=== PATIENT | male | born 1940 | race Caucasian/White ===

== ENCOUNTER 2017-06-07 08:51 | Observation (INO) | payer MEDICARE ==
[~2017-06-07] VITALS: Ht 177.8 cm; Wt 83.2 kg
--- OUTSIDE RECORDS SUMMARY | ~2017-06-07 | XMS | Clinical Summary ---
Demographics + + + | Address | [id number] [place] [address] | | | [place] [address] | + + + | Home Phone | | + + + | Preferred Language | Unknown | + + + | Marital Status | | + + + | Sabianism Affiliation | NON | + + + | Race | White | + + + | Ethnic Group | Not or | + + + Author + + + | Author | [facility] | + + + | Organization | [facility] | + + + | Address | Unknown | + + + | Phone | Unavailable | + + + Support +------+ +---------+ + | Name | Relationship | Address | Phone | +------+ +---------+ + ECON | Unknown | | +------+ +---------+ + Care Team Providers + +------+ + | Care Level Vial Marker Name | Role | Phone | + +------+ + PP | Unavailable | + +------+ + Source Comments MARGARITO is fully live on both [facility] and [facility] InPatient.[facility] Allergies No Known Allergies Current Medications + + +-------+---------+------+------+-------+ | Prescription | Sig. | Disp. | Refills | Star | End | Statu | | | | | | t | Date | s | | | | | | Date | | | + + +-------+---------+------+------+-------+ | SPIRIVA WITH | None Entered | | | | | Activ | | HANDIHALER 18 MCG & | | | | | | e | | INHALATION CAPS | | | | | | | + + +-------+---------+------+------+-------+ | BENICAR HCT 40 | None Entered | | | | | Activ | | MG-25 MG TAB | | | | | | e | + + +-------+---------+------+------+-------+ | ALBUTEROL IN | None Entered | | | | | Activ | | | | | | | | e | + + +-------+---------+------+------+-------+ | CELEBREX 200 MG | None Entered | | | | | Activ | | CAP | | | | | | e | + + +-------+---------+------+------+-------+ | NEXIUM 40 MG CAP | One capsule by mouth | 180 | 3 | 01/0 | | Activ | | | twice daily | | | 9/20 | | e | | | | | | 06 | | | + + +-------+---------+------+------+-------+ | FLONASE 50 | inhale 1 spray in | 1 | 11 | 01/1 | | Activ | | MCG/ACTUATION NASAL | each nostril by | | | 1/20 | | e | | SPRAY AEROSOL | nasal route once | | | 06 | | | | | daily | | | | | | + + +-------+---------+------+------+-------+ | LEVAQUIN 500 MG | 1 tablet by mouth | 14 | 0 | / | | Activ | | TABIndications: | daily for 14 days | | | 05/19 | | e | | Unspecified | | | | 06 | | | | sinusitis (chronic) | | | | | | | + + +-------+---------+------+------+-------+ | ZETIA 10 MG TAB | take 1 tablet (10mg) | 90 | 0 | /2 | | Activ | | | by oral route once | | | 11/16 | | e | | | daily | | | 06 | | | + + +-------+---------+------+------+-------+ | ADVAIR DISKUS 500 | [id number] daily | | | | | Activ | | MCG-50 MCG/DOSE FOR | | | | | | e | | INHALATION | | | | | | | + + +-------+---------+------+------+-------+ | ALLOPURINOL 100 MG | x1tab daily | | | | | Activ | | TAB | | | | | | e | + + +-------+---------+------+------+-------+ | TRIAZOLAM 0.25 MG | x1tab daily | | | | | Activ | | TAB | | | | | | e | + + +-------+---------+------+------+-------+ Active Problems + + + | Problem | Noted Date | + + + | Essential hypertension | | + + + + + | Overview: 06/20/12 Inactive Dx replaced with clinically | | equivalent record | + + + +---+ | HYPERLIPIDEMIA | | + +---+ | Chronic obstructive pulmonary disease (HCC) | | + +---+ + + | Overview: ICD10 | + + + +---+ | Insomnia | | + +---+ | GERD (gastroesophageal reflux disease) | | + +---+ | Gout | | + +---+ Family History + + +------+ + | Medical History | Relation | Name | Comments | + + +------+ + | Heart Disease | Father | | [place] | + + +------+ + | Heart Disease | Mother | | | + + +------+ + + +------+ + + | Relation | Name | Status | Comments | + +------+ + + | Father | | | | | | | (Age | | | | | 66) | | + +------+ + + | Mother | | | | | | | (Age | | | | | 79) | | + +------+ + + Social History + + + +--------+ + | Tobacco Use | Types | Packs/Day | Years | Date | | | | | Used | | + + + +--------+ + | Former Smoker | Cigarettes | 2.5 | 21 | Quit: 04/30/1979 | + + + +--------+ + + +------+---+ + | Smokeless Tobacco: | Chew | | Quit: | | Former User | | | 04/30/18 | | | | | 80 | + +------+---+ + + + +---------+ + | Alcohol Use | Drinks/We | oz/Week | Comments | | | ek | | | + + +---------+ + | No | | | | + + +---------+ + + + + | Sex Assigned at | Date Recorded | | | | + + + | Not on file | | + + + Last Filed Vital Signs + + + + | Vital Sign | Reading | Time Taken | + + + + | Blood Pressure | 130/80 | 05/08/2005 12:03 PM PST | + + + + | Pulse | 74 | 05/08/2005 12:03 PM PST | + + + + | Temperature | - | - | + + + + | Respiratory Rate | - | - | + + + + | Oxygen Saturation | 95% | 03/30/2005 12:34 PM PST | + + + + | Inhaled Oxygen | - | - | | Concentration | | | + + + + | Weight | 90.7 kg (200 lb) | 05/08/2005 12:03 PM PST | + + + + | Height | 180.3 cm (5' 11") | 05/08/2005 12:03 PM PST | + + + + | Body Mass Index | 27.89 | 05/08/2005 12:03 PM PST | + + + + Plan of Treatment + + + + + | Health Maintenance | Due Date | Last Done | Comments | + + + + + | INFLUENZA VACCINE | | | | | (FLU SHOT) | 7 | | | + + + + + Results Not on filefrom Last 3 Months
--- OUTSIDE RECORDS SUMMARY | ~2017-06-07 | XMS | Clinical Summary ---
Demographics + + + | Address | [id number] [place] [address] | | | [place] [address] | + + + | Home Phone | | + + + | Preferred Language | Unknown | + + + | Marital Status | | + + + | Islam Affiliation | NON | + + + | Race | White | + + + | Ethnic Group | Not or | + + + Author + + + | Author | [facility] | + + [...] Team Providers + +------+ + | Care Composition Weatherboard Applier Name | Role | Phone | + +------+ + PP | Unavailable | + +------+ + Source Comments MARGARITO is fully live on both [facility] and [facility] InPatient.[facility] Allergies No Known Allergies Current Medications [...] + +-------+---------+------+------+-------+ | ADVAIR DISKUS 500 | [id number] daily | | | | | Activ [...] | Heart Disease | Father | | [place] | + + +------+ + | Heart [...]
--- OUTSIDE RECORDS SUMMARY | ~2017-06-07 | XMS | Clinical Summary ---
Demographics + + + | Address | [address] [place] [address] | | | [place] [address] | + + + | Home Phone | | + + + | Preferred Language | Unknown | + + + | Marital Status | | + + + | Mu-Ism Affiliation | NON | + + + | Race | White | + + + | Ethnic Group | Not or | + + + Author + + + | Author | [facility] | + + + [...] Team Providers + +------+ + | Care Lead Programmer Analyst Name | Role | Phone | + +------+ + PP | Unavailable | + +------+ + Source Comments MARGARITO is fully live on both [facility] and [facility] InPatient.[facility] Allergies No Known Allergies Current Medications + [...] + +-------+---------+------+------+-------+ | ADVAIR DISKUS 500 | [id number] daily | | | | | Activ [...] | Heart Disease | Father | | [place] | + + +------+ + | Heart [...]
[~2017-06-07 08:51] MED LIST: ACETAMINOPHEN325 M1 PO; ACETAMINOPHEN500 M1 PO; ADVAIR 500-501 EACH IH; ALBUTEROL2.5 MG/3 M INH; ALLOPURINOL300 MG PO; ALPRAZOLAM0.5 MG PO; AMOXICILLIN500 MG PO; ASPIRIN EC81 MG PO; AUGMENTIN 875-1 EACH PO; AZITHROMYCIN250 MG PO; BENICAR40 MG PO; CHOLESTYRAMINE378 GM PO; CRESTOR5 MG PO; DICLOFENAC SODI75 MG PO; DUONEB 0.5 MG-33 ML IH; FELODIPINE ER5 MG PO; IPRATROPIU0.2 MG/1 M INH; LEVAQUIN500 MG PO; LEVOTHYROXINE100 MCG PO; MICARDIS HCT 41 EACH PO; OMEPRAZOLE20 MG PO; PREDNISONE10 MG PO; PREDNISONE20 MG PO; SPIRIVA18 MCG IH; TAMIFLU75 MG PO; TRAMADOL HCL50 MG PO; TRAZODONE HCL50 MG PO; VENLAFAXINE HCL75 MG PO; ZOLOFT50 MG; ZYRTEC10 MG PO
[2017-06-07] MEDS ORDERED: ZITHROMAX TRI-500 MG PO (09:07)
[2017-06-07] MEDS ORDERED: XANAX1 MG PO (09:07)
--- NOTE | 2017-06-07 12:00 | NUR ---
PT RECEIVED FROM ED, REPORT OBTAINED FROM ED RN. PT TRANSFERED SELF TO BED. PT REQUESTING TO USE URINAL, PROVIDED PRIVACY, ABLE TO VOID WITHOUT DIFFICULTY. PT DENIES PAIN. PT STATES BREATHING FEELS BETTER THAN THIS MORNING, LUNG SOUNDS WITH EXPIRATORY WHEEZE IN UPPER LOBES, RHONCHI THROUGHOUT, PT ON 2L NC, O2 SATS 92%. PT DENIES NAUSEA, BOWEL TONES ACTIVE, ASSISTED WITH ORDERING LUNCH. PT WITHOUT EDEMA, CMS INATCT, PULSE STRONG. PT DENIES NUMBNESS OR TINGLING. PT WITH IV TO RIGHT FOREARM, SALINE LOCKED. PT DENIES NEEDS AT THIS TIME, ORIENTED TO ROOM AND DISCUSSED PLAN OF CARE. ADMISSION INTAKE COMPLETED.
--- NOTE | 2017-06-07 13:09 | EKG ---
[facility] [address] [facility] [place] [address] Signed Normal sinus rhythm Prolonged QT Abnormal ECG No previous ECGs available Confirmed by ARMEN ROGERS MD ([id number]) on 06/07/2017 1:09:44 PM Electronically Signed By: ARMEN ROGERS MD 06/07/17 1309 PATIENT NAME: PATSY CUMMINS MAGO Electrocardiogram DATE OF : 36 PHYSICIAN: ARMEN ROGERS MD REPORT #: [id number] REPORT IS CONFIDENTIAL AND NOT TO BE RELEASED WITHOUT AUTHORIZATION
--- NOTE | 2017-06-07 14:30 | NUR ---
IV SOLUMEDROL GIVEN. PT DENIES NEEDS AT THSI TIME. PT RESTING COMFORTABLY IN BED.
[2017-06-07] MEDS ORDERED: BUMETANIDE1 MG PO (16:44)
--- NOTE | 2017-06-07 17:00 | NUR ---
MED REC COMPLETE
[2017-06-07] MEDS ORDERED: FELODIPINE ER10 MG PO (17:01)
[2017-06-07] MEDS ORDERED: BLUE GEL226.8 GM TOP (17:03)
--- NOTE | 2017-06-07 18:19 | NUR ---
PT RECEIVED FROM ED FOR COPD EXACERBATION. PT ON 2L NC, DOES NOT WEAR OXYGEN AT HOME, LUNG SOUNDS WITH RHONCHI AND WHEEZE. PT ON CARDIAC DIET, TOLERATING WELL. SALINE LOCK IN RIGHT FOREARM. PT INDEPENDENT IN ROOM. VOIDING IN URINAL. IV SOLUMEDROL AND NEBS.
--- NOTE | 2017-06-07 19:15 | NUR ---
SHIFT REPORT RECIEVED. PATIENT RESTING IN BED WATCHING TV. STATES HE IS FEELING "MUCH BETTER NOW". DENIES NEEDS. APPEARS TO BE COMFORTABLE. CALL LIGHT IN REACH.
--- NOTE | 2017-06-07 20:42 | NUR ---
Rounded up as charge nurse, pt on room air now, being weaned off by RT. no resp distress, watching tv, no c/o pain, no other requets
--- NOTE | 2017-06-07 21:15 | NUR ---
PATIENT RESTING IN BED. AAOX3. LUNGS ARE CLEAR. 1L O2 IN USE. ABD IS SOFT, NONTENDER, BOWEL SOUNDS ACTIVE. CMS INTACT. PATIENT IS ABLE TO TRANSFER INDEPENDENTLY. HE DENIES PAIN. STATES HE IS FEELLIKE HE WILL GO HOME TOMORROW. JUICE PROVIDED PER REQUEST. DENIES FURTHER NEEDS.
--- NOTE | 2017-06-07 21:18 | NUR ---
trazadone given per insomnia at his requests, on room air, no c/o sob
--- NOTE | 2017-06-07 22:00 | NUR ---
RT TIRATED PATIENT TO ROOM AIR. PATIENT CONTINUES TO HAVE O2 SAT 95%.
--- NOTE | 2017-06-08 00:14 | NUR ---
PATIENT'S URNAL EMPTIED. RT IN ROOM FOR NEB TREATMENT. PATIENT TOLERATING ROOM AIR. DENIES NEEDS AT THIS TIME. CALL LIGHT IN REACH.
--- NOTE | 2017-06-08 01:57 | NUR ---
VITALS AND I&OS DONE AND CHARTED. FRESH ICE WATER GIVEN. BEDSIDE TABLE AND CALL LIGHT WITHIN REACH.
--- NOTE | 2017-06-08 02:10 | NUR ---
PATIENT'S OUTPUT HAS BEEN LOW. MD CONTACTED. NEW ORDERS FOR A LITER BOLUS OF NORMAL SALINE AND THEN IV FLUIDS OF NORMAL SALINE AT 150/ ML/HR FOR ONE BAG. VERIFIED USING READ BACK METHOD.
--- NOTE | 2017-06-08 02:25 | NUR ---
STARTED NS BOLUS. IV FLUSHES WELL, SITE WNL. EDUCATED PATIENT ON SIGNS OF INFILTRATION. PATIENT AGREES TO CALL BEFORE GOING TO THE BATHROOM. HE HAS BEEN DOING THIS INDEPENDENTLY WHEN HE WAS NOT CONNECTED TO IV FLUIDS.
--- NOTE | 2017-06-08 03:30 | NUR ---
BLOUS FINISHED. IV FLUIDS STARTED PER ORDERS. PATIENT RESTING IN BED WATCHING TV. NO NEEDS AT THIS TIME.
--- NOTE | 2017-06-08 05:00 | NUR ---
PATIENT RESTING IN BED WATCHING TV. HE REQUESTED FOOD. RYANNE YANG WAS ABLE TO GET HIM A SANDWICH. PATIENT DENIES OTHER NEEDS. IV SITE WNL, IV FLUIDS INFUSING.
--- NOTE | 2017-06-08 05:37 | NUR ---
PATIENT RESTED WELL THROUGHOUT THE NIGHT BUT WAS ONLY ABLE TO SLEEP FOR SHORT PERIODS OF TIME. HIS URINE OUTPUT WAS LOW DURING THE NIGHT. IV BOLUS ORDERED AND THEN 1L OF IV FLUIDS INFUSING NOW. PATIENT DENIES PAIN AND SOB. TIRATED TO ROOM AIR. LUNGS ARE CLEAR. INDEPENDENT IN ROOM.
--- NOTE | 2017-06-08 06:20 | NUR ---
PATIENT RESTING IN BED. DENIES NEEDS AT THIS TIME. WAS UNABLE TO SLEEP MUCH AND IS TIRED. IV FLUIDS INFUSING, SITE WNL. URINE OUTPUT HAS IMPROVED.
--- NOTE | 2017-06-08 07:24 | NUR ---
RECIEVED BEDSIDE REPORT FROM ADELITA CLANCY. PT SLEEPING SOUNDLY, BREATHING EVEN AND UNLABORED. PT APPEARS COMFORTABLE.
[2017-06-08] MEDS ORDERED: CEFUROXIME500 MG PO (10:25)
[2017-06-08] MEDS ORDERED: IPRAT-ALBUT 0.5-3 ML INH (10:26)
[2017-06-08] MEDS ORDERED: PREDNISONE20 MG PO (10:28)
--- NOTE | 2017-06-08 10:58 | NUR ---
PT RESTING IN BED, SAID HE IS DOING SO MUCH BETTER. HOPES TO BE DC'D TODAY. HE MENTIONED THAT HE HAS G.KIDS COMING FOR THE WEEKEND. GOOD CONVERSATION, AND EXPRESSED HIS THANKS FOR THE TREATMENT AND CARE HE HAS RECEIVED WHILE HERE. DR ROGERS IN TO VISIT. WILL FOLLOW NEEDED
== END 2017-06-08 11:19 | disposition home or self-care (01) ==
LOC: ED 08:51 → MS 08:53
PROVIDERS: ADMIT Internal Medicine
DX: J44.1 Chronic obstructive pulmonary disease with (acute) exacerbation (principal); J96.01 Acute respiratory failure with hypoxia; I12.9 Hypertensive chronic kidney disease with stage 1 through stage 4 chronic kidney disease, or unspecified chronic kidney disease; N18.3 Chronic kidney disease, stage 3 (moderate); E78.5 Hyperlipidemia, unspecified; E79.0 Hyperuricemia without signs of inflammatory arthritis and tophaceous disease; F51.04 Psychophysiologic insomnia; M19.90 Unspecified osteoarthritis, unspecified site; F13.20 Sedative, hypnotic or anxiolytic dependence, uncomplicated; Z79.2 Long term (current) use of antibiotics; Z79.82 Long term (current) use of aspirin; Z79.51 Long term (current) use of inhaled steroids; Z79.899 Other long term (current) drug therapy
CPT/HCPCS: 71045; 80053; 83880; 84484; 85025; 93005; 93010; 94640; 96361; 96372; 96374; 96375; 96376; 99285; G0378; J0456; J0696; J1650; J2920; J2930; J7030

== ENCOUNTER 2019-06-11 10:37 | Emergency (ER) | payer MEDICARE, OTHER ==
[~2019-06-11] VITALS: Ht 177.8 cm; Wt 83.9 kg
[~2019-06-11 10:37] MED LIST changes: +BLUE GEL226.8 GM TOP; +BUMETANIDE1 MG PO; +CEFUROXIME500 MG PO; +FELODIPINE ER10 MG PO; +IPRAT-ALBUT 0.5-3 ML INH; +XANAX1 MG PO; +ZITHROMAX TRI-500 MG PO
[2019-06-11] MEDS ORDERED: SPIRIVA RESPIMAT4 G1 INH (10:50)
[2019-06-11] MEDS ORDERED: PREDNISONE20 MG PO (13:24)
[2019-06-11] MEDS ORDERED: IPRAT-ALBUT 0.5-3 ML INH (13:24)
[2019-06-11] MEDS ORDERED: DOXYCYCLINE HY100 MG PO (13:24)
== END 2019-06-11 13:48 | disposition home or self-care (01) ==
LOC: ED 10:37
DX: J44.0 Chronic obstructive pulmonary disease with (acute) lower respiratory infection (principal); J18.9 Pneumonia, unspecified organism; J44.1 Chronic obstructive pulmonary disease with (acute) exacerbation; I10 Essential (primary) hypertension; Z79.899 Other long term (current) drug therapy; Z79.82 Long term (current) use of aspirin
CPT/HCPCS: 36415; 71046; 80053; 83880; 84484; 85025; 99283-25; J7512

== ENCOUNTER 2020-02-27 18:07 | Emergency (ER) | payer MEDICARE, OTHER ==
[~2020-02-27] VITALS: Ht 177.8 cm; Wt 83.9 kg
[~2020-02-27 18:07] MED LIST changes: +DOXYCYCLINE HY100 MG PO; +SPIRIVA RESPIMAT4 G1 INH
== END 2020-02-27 22:08 | disposition home or self-care (01) ==
LOC: ED 18:07
DX: S51.812A Laceration without foreign body of left forearm, initial encounter (principal); S51.811A Laceration without foreign body of right forearm, initial encounter; S61.211A Laceration without foreign body of left index finger without damage to nail, initial encounter; X50.0XXA Overexertion from strenuous movement or load, initial encounter; J44.9 Chronic obstructive pulmonary disease, unspecified; I10 Essential (primary) hypertension; E78.00 Pure hypercholesterolemia, unspecified; Z87.891 Personal history of nicotine dependence; Z79.899 Other long term (current) drug therapy; Z79.52 Long term (current) use of systemic steroids; Z79.82 Long term (current) use of aspirin
CPT/HCPCS: 90471; 90715; 99282-25

== ENCOUNTER 2021-01-29 17:04 | Emergency (ER) | payer MEDICARE, OTHER ==
[~2021-01-29] VITALS: Ht 177.8 cm; Wt 88.5 kg
== END 2021-01-29 21:02 | disposition home or self-care (01) ==
LOC: ED 17:04
DX: U07.1 COVID-19 (principal); J44.9 Chronic obstructive pulmonary disease, unspecified; I10 Essential (primary) hypertension; E78.00 Pure hypercholesterolemia, unspecified; Z87.891 Personal history of nicotine dependence; Z79.52 Long term (current) use of systemic steroids; Z79.899 Other long term (current) drug therapy; Z79.82 Long term (current) use of aspirin
CPT/HCPCS: 71045; 80053; 83880; 85025; 99285-25; M0243; Q0244; U0003

== ENCOUNTER 2021-02-22 12:03 | Emergency (ER) | payer MEDICARE, OTHER ==
[~2021-02-22] VITALS: Ht 177.8 cm; Wt 89.4 kg
--- OUTSIDE RECORDS SUMMARY | 2021-02-22 14:48 | XMS ---
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 Pamela has no Care Guidelines for this patient. Jose Juan VISIT COUNT (12 MO.) [facility] T[facility] NOTE: Visits indicate total known visits. ED/C VISIT TRACKING (12 MO.) 02/22/2021 12:[address] [facility] [place] TYPE: Emergency COMPLAINT: - SOB, WEAK, ABD GAS PAIN 01/29/2021 17:04 [facility] [place] TYPE: Emergency COMPLAINT: - FEVER, SOB DIAGNOSES: - Other care home (current) drug therapy - Chronic obstructive pulmonary disease, unspecified - COVID-19 - Essential (primary) hypertension - retirement (current) use of systemic steroids - Shortness of breath - Personal history of nicotine dependence - intermediate manager (current) use of aspirin - Pure hypercholesterolemia, unspecified 02/27/2020 18:08 [facility] [place] TYPE: Emergency COMPLAINT: - ARM INJ DIAGNOSES: - Laceration without foreign body of right forearm, initial encounter - Other care home (current) drug therapy - Overexertion from strenuous movement or load, initial encounter - Laceration without foreign body of left forearm, initial encounter - intermediate manager (current) use of aspirin - Laceration without foreign body of left index finger without damage to nail, initial encounter - Personal history of nicotine dependence - intermediate manager (current) use of systemic steroids - Essential (primary) hypertension - Chronic obstructive pulmonary disease, unspecified - Pure hypercholesterolemia, unspecified INPATIENT VISIT TRACKING (12 MO.) No inpatient visits to display in this time frame [email or web address]
--- NOTE | 2021-02-22 15:14 | EKG ---
[facility] [address] [facility] [place], [place] [address] Signed Sinus bradycardia Otherwise normal ECG When compared with ECG of 07-JUN-2017 09:16, No significant change was found Confirmed by AMBER OJEDA DO ([id number]) on 02/22/2021 3:13:51 PM Electronically Signed By: AMBER OJEDA DO 02/22/21 1514 PATIENT NAME: PATSY CUMMINS MAGO Electrocardiogram DATE OF : 36 PHYSICIAN: AMBER OJEDA DO REPORT #: [id number] REPORT IS CONFIDENTIAL AND NOT TO BE RELEASED WITHOUT AUTHORIZATION
[2021-02-22] MEDS ORDERED: PREDNISONE50 MG PO (17:40)
[2021-02-22] MEDS ORDERED: AUGMENTIN 875-1 EACH PO (17:40)
== END 2021-02-22 17:55 | disposition home or self-care (01) ==
LOC: ED 12:03
DX: J44.1 Chronic obstructive pulmonary disease with (acute) exacerbation (principal); I10 Essential (primary) hypertension; E78.00 Pure hypercholesterolemia, unspecified; Z87.891 Personal history of nicotine dependence; Z79.82 Long term (current) use of aspirin; Z79.899 Other long term (current) drug therapy
CPT/HCPCS: 71045; 80053; 83735; 84484; 85025; 93005; 93010; 94644; 94667; 99285-25; J7121; J7512

== ENCOUNTER 2021-08-04 07:33 | Inpatient (IN) | payer MEDICARE, OTHER ==
[~2021-08-04] VITALS: Ht 177.8 cm; Wt 91.6 kg
[~2021-08-04 07:33] MED LIST changes: +PREDNISONE50 MG PO
--- OUTSIDE RECORDS SUMMARY | 2021-08-04 07:40 | XMS ---
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 Care History Medical/Surgical 02/23/2021 [facility] Follow up visit with PCP Dr. Rogers on 03/08/2021 02/23/2021 [facility] - Patient is currently established with [facility]. If patient is seen in the ED during business hours. Please contact CHWs at [facility]. Care Recommendation: If this patient has had 5 or more Emergency Department visits in the last 12 months.\T\nbsp; Patient will require education on the scope and purpose of the ED as an acute care provider not a Primary Care Provider and should not be utilized for chronic conditions.\T\nbsp; These are guidelines and the provider should exercise clinical judgment when providing care. E.D. VISIT COUNT (12 MO.) [address] [facility] TOTAL 3 NOTE: Visits indicate total known visits. 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
--- NOTE | 2021-08-04 11:02 | NUR ---
rEPORT RECEIVED FROM ADELITA GUARDADO. AWAITING PTS ARRIVAL TO UNIT.
--- NOTE | 2021-08-04 11:43 | NUR ---
PT ARRIVED FROM ER. PT TRANSFERESE SELF TO BED WITH 1 PERSON ASSIST. PT UNSTEADY ON FEET. PT DENIES PAIN AND NAUSEA. PT NOTABELY SHORT OF BREATH WITH ABMULATION UP TO BED, PT REMAINS ON 2L O2 BY NC WITH RR OF 24 AND OXYGEN SATUATION 89-91%. PT ALERT AND ORIENTED TO ALL. PT DENEIS NUMBNESS OR TINGLING. PT REPORTS HE FEELS WEAK. LUNG SOUNDS CORSE IN BASES WITH RONCHI NOTED. UPPER LOBES CLEAR. PT REPROTS PRODUCTIVE COUGH WITH THICK WHITE SPUTUM IN SMALL AMOUNTS. +1 PITTING EDEMA NOTED IN LEFT LOWER EXTREMITY AND +2 PITTING EDEMA IN RIGHT. PT REPORTS HE WEARS COMPRESSION SOCKS AT HOME AND HAS NOT HAD THEM ON TODAY. BOWEL TONES HEARD. PT DENIES ABDOMINAL DISTENTION. PT ORIENTE TO ROOM AND CALL LIGHT. PT NOW RESTING WITH EYES CLOSED, RESPIRATIONS EVEN AND UNLABORED. PTS AT BEDSIDE. CALL LIGHT WITHIN REACH.B ED RAILS UP. BED ALARM ON.
--- NOTE | 2021-08-04 13:01 | NUR ---
THIS RN TO ROOM TO CHECK ON PT. PT RESTING IN BED WITH EYES CLOSED. RESPIRATIONS EVEN AND UNLABORED. HEAD OF BED ELEVATED TO 35 DEGREES. BED ALARM ON. CALL LIGHT WITHIN REACH. BED RAILS UP.
--- NOTE | 2021-08-04 13:30 | NUR ---
THIS RN TO ROOM TO CHECK ON PT. PT HAS REMOVED OXYGEN TUBING. OXGYEN PLACED BACK TO PTS FACE AT 2L BY NC. OXYGEN SATURATIONS CLIMB TO 90%. PT REPORTS HE WOULD LIKE TO CONTINUE RESTING. LUNCH AT BEDSIDE. PT DECLINES AT THIS TIME. BED RAILS UP. CALL LIGHT WITHIN REACH. PT ALLOWED TO REST. BED ALARM ON.
--- NOTE | 2021-08-04 14:31 | NUR ---
THIS RN TO ROOM TO CHECK ON PT. PT RESTING IN BED. PT AWAKEN, ALERT AND OREINTED AT THIS TIME. VITAL SIGNS STABLE PT REMAINS ON 2L O2 BY NC WITH OXGYEN SATURATIONS 89-93%. STAND BY ASSIST UP TO RESTROOM. PT VOIDS 300ML DARK YELLOR URINE. PT PERFORMS SELF ADAM CARE. PT DECLINES DEPENDS, NON BLANCHABLE REDNESS TO GLUTEAL AREA UNCHANGED. PT ASSISTED WITH TURNING ON THE TV. PT DENEIS PAIN AND NAUSEA. NO ADDITIONAL REQUESTS OR COMPLAINTS. CALL LIGHT WITHIN REACH. BED RAILS UP. BED ALARM ON.
--- NOTE | 2021-08-04 15:01 | NUR ---
PT ARRIVED THIS SHIFT FOR COPD EXACERBATION. PT UP TO RESTROOM WITH STAND BY ASSIST. PT UNSTEADY ON FEET AT TIMES. PT HAD MINIMAL APPITITE FOR 2GM SODIUM DIET. PT ON 2L O2 BY NC, ROOM AIR AT BASELINE, TO MAINTAIN OXGYEN SATURATIONS 89-93%. LUNG SOUNDS CLEAR IN UPPER LOBES BUT RONCHI NOTED WITH CORSE LUNG SOUNDS IN LOWER LOBES/BASES. I.S. USE ENSURED, SCHEDULED NEB TREATMENTS GIVEN. PITTING EDEMA NOTED TO LOWER LEGS, MONITORING. BLOOD CULTURES DRAWN IN ER, CHEST X-RAY DONE. PT VOIDING QUANTITY SUFFICIENT. PT HAS YET TO USE CALL LIGHT. BED ALARM FOR SAFETY.
--- NOTE | 2021-08-04 16:16 | NUR ---
AFTERNOON ASSESSMENT DUE. PT RESTING IN BED WATCHING TV. PT DENIES PAIN AND NASUEA. PT REPORTS HIS BEATHING IS "IN AND OUT." PT REMAINS ALERT AND OREINTED. HEART TONES REGULAR. PT NOTED TO BE MILDY DIAPHROETIC, SIMLAR TO WHEN HE WAS ADMITTED. UPPER LOBES OF LUNG SOUNDS CLEAR. CORSE SOUNDS NOTED IN LOWER LOBES ESPICALLY FROM THE BACK. PT REPORTS ONGOING PRODUCTIVE COUGH "HERE AND THERE." DYSPNEA ON EXERTION CONTINUES. I.S. USE DEMONSRATED. PT REACHES 2000ML X5. REMAINDER OF ASSESSMENT REMAINS UNCHANGED. ICE WATER REFILLED. PT WATCHING TV. MEDICATION GIVEN. PT DENIES ADDITIONAL REQUESTS OR COMPLAINTS. CALL LIGHT WITHIN REACH. BED RAILS UP.
--- NOTE | 2021-08-04 17:28 | EKG ---
[facility] [address] [facility] [place] [address] Signed Normal sinus rhythm Normal ECG When compared with ECG of 22-FEB-2021 13:23, No significant change was found Confirmed by ARMEN ROGERS MD ([id number]) on 08/04/2021 5:27:52 PM Electronically Signed By: ARMEN ROGERS MD 08/04/21 1728 PATIENT NAME: PATSY CUMMINS MAGO Electrocardiogram DATE OF : 36 PHYSICIAN: ARMEN ROGERS MD REPORT #: [id number] REPORT IS CONFIDENTIAL AND NOT TO BE RELEASED WITHOUT AUTHORIZATION
--- NOTE | 2021-08-04 17:43 | NUR ---
THIS RN TO ROOM TO CHECK ON PT. PT CLIMBING OUT OF BED. PT REPORTS NEED TO USE THE RESTROOM. FALL PRECAUTIONS REVIEWED WITH PT. PT VERBAILZES UNDRESTANDING OF USING CALL LIGHT. 1 PERSON ASSIST UP TO RESTROOM. PT HAS DIFFICULTY NAVIGATING CORDS. PT PASSES JEISON AND VOIDS 300ML YELLOW URINE. 1 PERSON ASSIST BACK TO BED. VITAL SIGNS STABLE PT REMAINS ON 2L O2 BY NC TO MAINTAIN OXYGEN SATURATIONS FROM 89-92%. PT REQUESTS EYE DROPS, NS FISH GIVEN TO PT TO USE EYE DROPS. PT TALKING TO HIS ON THE PHONE. NO ADDITIONAL REQUESTS OR COMPLAINTS. PT DENIES PAIN AND NAUSEA. BED RAILS UP. CALL LIGHT WITHIN REACH. BED ALARM ON.
[2021-08-04] MEDS ORDERED: ROSUVASTATIN CA10 MG PO (18:15)
[2021-08-04] MEDS ORDERED: DOXAZOSIN MESYLA2 MG PO (18:16)
[2021-08-04] MEDS ORDERED: ALBUTEROL2.5 MG/3 M INH (18:21)
[2021-08-04] MEDS ORDERED: INCRUSE ELLI62.5 MCG INH (18:26)
--- NOTE | 2021-08-04 19:21 | NUR ---
In bed, watching tv, O2 in place,
--- NOTE | 2021-08-04 20:24 | NUR ---
IV PUMP WAS BEEPING, IV BAG IS ALMOST COMPLETE. PROGRAMED 50 MORE MLS INTO PUMP. RT IS IN ROOM AT THIS TIME WITH PT. CALL LIGHT IS CLOSE.
--- NOTE | 2021-08-04 20:53 | NUR ---
Pt on O2 2LNC, not chronic, awake alert and oriented. repositions self in bed. Tylenol 500mg po given per light discomfort. call light at hands reach, fresh fluids, pt 1PA, bed alarm, fall precautions. RT in room.
--- NOTE | 2021-08-05 00:34 | NUR ---
RESTING, O2 2LNC IN PLACE, NO DISTRESS, EYES CLOSED, HOB ELEVATED IN BED. CALL LIGHT AND FLUIDS AT HANDS REACH
--- NOTE | 2021-08-05 02:21 | NUR ---
COOP WITH ASSESSMENT, ON 2LNC, NOT CHRONIC, LUNGS DIM AT BASES, NO COUGH AT THIST MEMO, WAS EARLIER. TOLERATING SIPS FO FLUIDS WELL, SL PATENT. LE ELEVATED HOB ELEVATED TO HIS COMOFRT, BED ALARM ON
--- NOTE | 2021-08-05 03:29 | NUR ---
Resting, hob elevated to comfort, O2 2LNC inplace, call light at bedside
--- NOTE | 2021-08-05 06:25 | NUR ---
Pt on 2L NC, not chronic, lungs charles t bases but clear, alert and oriented, slept this shift. sl patent. bed alarm for fall precautions. Up to BR w 1pa, voiding QS, tolerated well, pleasant, tolerating liquids, uses call light, bruising over arms healilng
--- NOTE | 2021-08-05 07:27 | NUR ---
Patient sleeping, appears to be in no acute distress at this time. Respiration 20. Shift report completed at the door.
--- NOTE | 2021-08-05 09:31 | NUR ---
Assessment completed, AM medications, Up to the sink to wash his face. No pain, no additional needs
--- NOTE | 2021-08-05 10:21 | NUR ---
Dolores walked to the bathroom, sat up in chair for mercypablo
--- NOTE | 2021-08-05 11:04 | NUR ---
patient in bed sleeping, oxygen flow turned off, will reassess. Patient is a mouth breather as well
--- NOTE | 2021-08-05 11:51 | NUR ---
Patient in bed, watching TV. No pain to report. Oxygen level 86%, replaced oxygen at 1L BNC.
--- NOTE | 2021-08-05 13:34 | NUR ---
Assessment completed, Oxygen removed for weaning process, will reassess and replace as needed. Patient requesting to take a showere this afternoon. Patient also completed 3 reps of the incentive spirometer at the 1500 roxane. Deep breathing coughing exercise completed as well.
--- NOTE | 2021-08-05 15:26 | NUR ---
Lactulose for his bowels were given, updated the patient and his on the plan of care.
--- NOTE | 2021-08-05 17:28 | NUR ---
Dolores got up and walked around the unit, stated could feel when short of breath.
--- NOTE | 2021-08-05 18:35 | NUR ---
Patient reports no pain, no needs at this time. Patient didnt eat his dinner, just doesnt have a appetite. Plan to potentially discharge home regino. with home oxygen.
--- NOTE | 2021-08-05 20:17 | NUR ---
pt on room air, sats 88-89%, placed on 1LNC, will get deanna tx tonight. lungs dim t/o. no sob. will do O2 spot checks on return form BR, moist cough nonproductive cough present. pt independent in room. coop with assessment. SL LFA patent. flushed face and skin w/o changes, legs elevated. tolerating fluids well, no emesis, no c/o pain or sob. Aware to reposition often when in bed due to nonblancheable red areas buttocks. stated understanding, stated he is to be going home in am. uses call light.
--- NOTE | 2021-08-05 21:19 | NUR ---
pt up to br, independent, on return noted to have very flushed face, resp 32, spot checks on 1LNC were 80%, o2 increaed to 5L after a fe minutes, went down to 2LNC 90-91%. sob on exertion noted. RT notified. pt states he is ok. resp down to 20 at thist vivi, 2LNC sats 90%. will notify
--- NOTE | 2021-08-06 00:30 | NUR ---
PT UP TO BR, SOB ON RETURN HYPERVENTILATING, INCREAESD REDNESS OF FACE AND CHEST NOTED. CHECK SPOT O2 WAS 80% ON 2L NC. PT BACK IN BED. RESP WERE 25 AT THAT TIME PULE 97, SATS 80%, O2 INCREASED TO 6L, SATS UP TO 95%, WEANED BACK TO 2L SITTING AT 90-91% ON 2L. LUNGS STILL WITH CRACKLES BEFORE. RT NOTIFIED.
--- NOTE | 2021-08-06 00:53 | NUR ---
DR ROGERS NOTIFIED R/T PTS STATUS. NO NEW ORDERS" LETS OBSERVE".
--- NOTE | 2021-08-06 02:22 | NUR ---
RESTING, O2 2LNC, HOB ELEVATED TO COMFORT. CALL LIGHT AND FLUIDS AT BEDSIDE
--- NOTE | 2021-08-06 03:41 | NUR ---
resting, on 2lnc, no distress, hob elevated, call light and fluids at bedside
--- NOTE | 2021-08-06 04:51 | NUR ---
PT WAS ON ROOM AIR AT BEGINING OF SHIFT, DESATTED TO LOW 80% ON RETURN FROM BR AND WAS PLACED ON 1LNC, AFEW HOURS LATER AGAIN ON RETURN FROM BR WAS VERY TACHEIPNEIC, FACIAL FLUSHEING, SATS 80%, PLACED ON 2L NC, RECEIVED NEB TX. LUNGS WITH CRACKLES AT BASE, MOIST NON PRODUCTIVE COUGH PRESENT. SOB WITH EXERTION PRESENT, RECUPERATED AFTER A FEW MINUTES. DR ROGERS WAS NOTIFIED, NO NEW ORDERS. PT INDEPENDENT IN ROOM, AWARE TO CALL RN ON RETURN FROM BR FOR O2 SPOT CHECKS, STATED UNDERSTANDING. TOLERATING LIQUIDS WELL, NO EMESIS. USES CALL IGHT. PT LOOKING FORWARD TO BEING DC'D TODAY
--- NOTE | 2021-08-06 05:20 | NUR ---
IN TO GET VS, FRESH ICE WATER FILLED, TRASH EMPTIED
--- NOTE | 2021-08-06 05:23 | NUR ---
pt resting, o2 off nose, sats 88%, placed back on 2LNC. 91%.
--- NOTE | 2021-08-06 07:15 | NUR ---
Patient up to the bathroom, independently. Shift report received.
--- NOTE | 2021-08-06 08:30 | NUR ---
Assessment completed, VS reassess, SBP improved. VeraPEP completed by the patient. AM medications given, IV flushed.
--- NOTE | 2021-08-06 09:21 | NUR ---
patient resting in bed at this time, report no pain and no needs. Advised the patient that he needs to ambulate this morning in the hallway, patient verbalized understanding
--- NOTE | 2021-08-06 10:43 | NUR ---
Placed patient on RA, in order for RT to evaluate for home oxygen needs.
[2021-08-06] MEDS ORDERED: DOXYCYCLINE HY100 MG PO (12:12)
[2021-08-06] MEDS ORDERED: PREDNISONE20 MG PO (12:13)
--- NOTE | 2021-08-06 12:14 | NUR ---
Patient updated on upcoming discharge and the need for home oxygen. Waiting for conference planner and then for oxygen delivery
[2021-08-06] MEDS ORDERED: IPRAT-ALBUT 0.5-3 ML INH (12:16)
== END 2021-08-06 14:10 | disposition home or self-care (01) | DRG 189 ==
LOC: ED 07:33 → MS 10:26
PROVIDERS: ADMIT Internal Medicine; ATTEND Internal Medicine
DX: J96.01 Acute respiratory failure with hypoxia (principal); J44.1 Chronic obstructive pulmonary disease with (acute) exacerbation; Z20.822 Contact with and (suspected) exposure to COVID-19; E78.5 Hyperlipidemia, unspecified; G47.00 Insomnia, unspecified; E79.0 Hyperuricemia without signs of inflammatory arthritis and tophaceous disease; N18.32 Chronic kidney disease, stage 3b; I12.9 Hypertensive chronic kidney disease with stage 1 through stage 4 chronic kidney disease, or unspecified chronic kidney disease; Z79.52 Long term (current) use of systemic steroids; Z79.899 Other long term (current) drug therapy; Z87.891 Personal history of nicotine dependence; Z98.890 Other specified postprocedural states; Z79.82 Long term (current) use of aspirin
CPT/HCPCS: 36415; 71045; 80048; 80053; 81001; 82247; 83605; 83880; 85025; 87040; 93005; 93010; 94640; 94667; 94668; 94760; 94761; 96365; 99285-25; A9270; C9803; J0696; J1650; J2930; J7030; U0003

== ENCOUNTER 2022-03-24 10:31 | Emergency (ER) | payer MEDICARE, OTHER ==
[~2022-03-24] VITALS: Ht 177.8 cm; Wt 91.2 kg
[~2022-03-24 10:31] MED LIST changes: +DOXAZOSIN MESYLA2 MG PO; +INCRUSE ELLI62.5 MCG INH; +ROSUVASTATIN CA10 MG PO
--- OUTSIDE RECORDS SUMMARY | 2022-03-24 10:34 | XMS ---
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 Care History Medical/Surgical 02/23/2021 [facility] Follow up visit with PCP Dr. Rogers on 03/08/2021 02/23/2021 [facility] - Patient is currently established with [facility]. If patient is seen in the ED during business hours. Please contact CHWs at [facility]. Care Recommendation: If this patient has had [...] providing care. E.D. VISIT COUNT (12 MO.) 2 [facility] AlanDorinda TOTAL 2 NOTE: Visits indicate total known visits. ED/UCC VISIT TRACKING (12 MO.) 03/24/2022 10:31 [facility] TYPE: Emergency COMPLAINT: - SINUS CONGESTION, COUGH 08/04/2021 07:34 [facility] TYPE: Emergency COMPLAINT: - SOB, VOMITING, CHILLS INPATIENT VISIT TRACKING (12 MO.) 08/04/2021 10:[address] [facility] TYPE: Medical Surgical COMPLAINT: - RESPIRATORY FAILURE, COPD EXACERBATION DIAGNOSES: - prison (current) use of aspirin - Hyperuricemia without signs of inflammatory arthritis and tophaceous disease - Acute respiratory failure with hypoxia - Contact with and (suspected) exposure to COVID-19 - Other exterminator helper termite (current) drug therapy - Other specified postprocedural states - Insomnia, unspecified - Chronic obstructive pulmonary disease with (acute) exacerbation - Chronic kidney disease, stage 3b - Personal history of nicotine dependence - Hypertensive chronic kidney disease with stage 1 through stage 4 chronic kidney disease, or unspecified chronic kidney disease - prison (current) use of systemic steroids - Chronic kidney disease, stage 3b - Hypertensive chronic kidney disease with stage 1 through stage 4 chronic kidney disease, or unspecified chronic kidney disease - exterminator helper termite (current) use of aspirin - exterminator helper termite (current) use of systemic steroids - Other specified postprocedural states - Hyperlipidemia, unspecified - Insomnia, unspecified - Contact with and (suspected) exposure to COVID-19 - Other retirement (current) drug therapy - Chronic obstructive pulmonary disease with (acute) exacerbation - Personal history of nicotine dependence - Hyperlipidemia, unspecified - Hyperuricemia without signs of inflammatory arthritis and tophaceous disease [email or web address]
[2022-03-24] MEDS ORDERED: ZITHROMAX250 MG PO (15:22)
[2022-03-24] MEDS ORDERED: PREDNISONE20 MG PO (15:22)
--- NOTE | 2022-03-24 21:53 | EKG ---
[facility] [address] [place], [place] [address] Signed Sinus bradycardia Low voltage QRS Borderline ECG When compared with ECG of 04-AUG-2021 07:48, No significant change was found Confirmed by JOHN MCCRARY MD ([id number]) on 03/24/2022 9:52:49 PM Electronically Signed By: JOHN MCCRARY MD 03/24/[id number] PATIENT NAME: PATSY CUMMINS [place] Electrocardiogram DATE OF : 36 PHYSICIAN: JOHN MCCRARY MD REPORT #: [id number] REPORT IS CONFIDENTIAL AND NOT TO BE RELEASED WITHOUT AUTHORIZATION
== END 2022-03-24 15:46 | disposition home or self-care (01) ==
LOC: ED 10:31
DX: J44.9 Chronic obstructive pulmonary disease, unspecified (principal); J06.9 Acute upper respiratory infection, unspecified; Z20.822 Contact with and (suspected) exposure to COVID-19; I10 Essential (primary) hypertension; E78.00 Pure hypercholesterolemia, unspecified; Z87.891 Personal history of nicotine dependence; Z79.82 Long term (current) use of aspirin; Z79.899 Other long term (current) drug therapy
CPT/HCPCS: 36415; 71045; 80053; 83735; 83880; 85025; 87502; 93005; 93010; 94640; 99284-25; C9803; U0003

== ENCOUNTER 2024-02-06 08:14 | Inpatient (IN) | payer MEDICARE, OTHER ==
[~2024-02-06] VITALS: Ht 177.8 cm; Wt 99.4 kg
[2024-02-06] VITALS (12 sets, daily range): BP systolic 77–148; BP diastolic 52–119
[~2024-02-06 08:14] MED LIST changes: -INCRUSE ELLI62.5 MCG INH; +SPIRIVA18 MCG INH; +ZITHROMAX250 MG PO
[2024-02-06] MEDS ORDERED: CEFTRIAXONE/SODIUM CHLORIDE 2 GM/100 ML PIGGYBACK IV ONE (08:30)
[2024-02-06] MEDS ORDERED: ALBUTEROL/IPRATROPIUM 3 ML NEB INH ONE (08:30)
[2024-02-06] MEDS ORDERED: SODIUM CHLORIDE 0.9% 1,000 ML IV ONE (08:30)
[2024-02-06 08:44] LABS: PH, VENOUS 7.308 (7.31-7.41)
[2024-02-06 08:46] LABS: HEMATOCRIT 44.9 % (35.0-50.0); HEMOGLOBIN 14.4 g/dL (12.0-18.0); MCH 31.9 (27-36); MCHC 32.1 g/dl (30-36); MCV 99.2 fl (81-99); PLATELET COUNT 169 K/uL (140-440); RBC 4.52 M/ul (4.3-5.7); RDW 17.3 (10.5-15.0)
[2024-02-06 09:00] LABS: ALBUMIN 3.1 g/dL (3.4-5.0); ALBUMIN/GLOBULIN RATIO 0.89 (1.1-2.4); ANION GAP 14.7 (7-21); BILIRUBIN, TOTAL 1.3 ng/dL (0.2-1.0); BUN/CREATININE RATIO 16.03 (6.0-28.6); CREATININE, SERUM 3.43 mg/dL (0.70-1.30); POTASSIUM 4.7 mmol/L (3.5-5.1); PROTEIN, TOTAL 6.6 g/dL (6.4-8.2)
[2024-02-06 09:06] LABS: LACTIC ACID, BLOOD 2.8 mmol/L (0.4-2.0)
[2024-02-06] MEDS ORDERED: LIDOCAINE 2% VISCOUS 6 ML SYR TOP ONE (09:15)
[2024-02-06 09:16] LABS: BANDS, MANUAL DIFF 42; BASOPHILS, MANUAL DIFF 0; EOSINOPHILS, MANUAL DIFF 0; LYMPHOCYTES, MANUAL DIFF 4; MONOCYTES, MANUAL DIFF 0; NEUTROPHILS, MANUAL DIFF 54
[2024-02-06 09:39] LABS: BILIRUBIN, URINE NEGATIVE (negative); BLOOD/HGB, URINE TRACE-I (Negative); KETONE, URINE TRACE (Negative); LEUK ESTERASE, URINE NEGATIVE (negative); NITRITE, URINE NEGATIVE (negative); PH, URINE 5.5 (5-7)
[2024-02-06 09:46] LABS: RED BLOOD CELLS, URINE 0-1 /hpf (0-5)
[2024-02-06 09:47] LABS: BACTERIA, URINE 1+ /hpf (negative); CASTS, URINE NONE SEEN \\lpf; COLLECTION TYPE, URINE CLEAN CATCH; CRYSTALS, URINE NONE SEEN (0-1+); EPITHELIAL CELLS, URINE SQUAMOUS 1+ /lpf (0-1+); REFLEX CULTURE, URINE No (No)
[2024-02-06 10:16] LABS: LACTIC ACID, BLOOD 3.7 mmol/L (0.4-2.0)
[2024-02-06] MEDS ORDERED: DAPTOmycin 500 MG/10 ML VIAL IV SCH (10:24)
[2024-02-06] MEDS ORDERED: ACETAMINOPHEN 1,000 MG/100 ML VIAL IV ONE (11:15)
[2024-02-06] MEDS ORDERED: LACTATED RINGER'S 1,000 ML IV ONE ×2 (12:45→17:45)
[2024-02-06] MEDS ORDERED: NOREPINEPHRINE BITARTRATE 250 ML IV SCH (13:00)
[2024-02-06] MEDS ORDERED: ACETAMINOPHEN 325 MG TAB PO PRN (16:00)
[2024-02-06] MEDS ORDERED: ondansetron HCL 4 MG/2 ML VIAL IV PRN (16:00)
[2024-02-06] MEDS ORDERED: ALBUTEROL/IPRATROPIUM 3 ML NEB INH SCH (16:00)
[2024-02-06] MEDS ORDERED: SODIUM CHLORIDE 0.9% 1,000 ML IV SCH ×2 (16:00→19:15)
[2024-02-06] MEDS ORDERED: PROCHLORPERAZINE EDISYLATE 10 MG/2 ML VIAL IV PRN (16:00)
--- NOTE | 2024-02-06 16:17 | EKG ---
[facility] [address] [place] [address] Signed Sinus tachycardia Inferior infarct , age undetermined Abnormal ECG When compared with ECG of 24-MAR-2022 12:01, Vent. rate has increased BY 54 BPM Inferior infarct is now present Confirmed by Cari Echavarria MD ([id number]) on 02/06/2024 4:17:01 PM Electronically Signed By: CARI ECHAVARRIA MD 02/06/24 1617 PATIENT NAME: PATSY CUMMINS [place] Electrocardiogram DATE OF : 36 PHYSICIAN: CARI ECHAVARRIA MD REPORT #: [id number] REPORT IS CONFIDENTIAL AND NOT TO BE RELEASED WITHOUT AUTHORIZATION
[2024-02-06] MEDS ORDERED: ALBUTEROL SULFATE 0.083% 3 ML VIAL INH PRN (16:45)
[2024-02-06] MEDS ORDERED: methylPREDNISolone SOD SUCC 125 MG/2 ML VIAL IV SCH (17:00)
[2024-02-06 17:25] LABS: ANION GAP 15.8 (7-21); BUN/CREATININE RATIO 17.54 (6.0-28.6); CALCIUM 8.2 mg/dL (8.5-10.1); CREATININE, SERUM 3.42 mg/dL (0.70-1.30); POTASSIUM 3.8 mmol/L (3.5-5.1)
--- NOTE | 2024-02-06 18:22 | NUR ---
medications reconciled with patient's family and med list
--- NOTE | 2024-02-06 18:52 | NUR ---
"ANEUDY" ARRIVED TO THE CCU AT 1646 VIA ED ELIZ, ON 8MCG/MIN NOREPINEPHRINE, AND 6L NC. . HE IS WELL LOVED AND SURROUNDED BY MULTIPLE FAMILY MEMBERS NEURO- DROWSY, SLOW TO RESPOND, ORIENTED X 3, WALKS OCCASIONALLY WITH 1 P ASSIST, PERRL CARDIAC- ST, EKG IN CHART, CURRENT TEMP 100.2, LOPEZ TEMPERATURE IN USE, NOREPINEPHRINE TO MAINTAIN MAP 65 OR GREATER RESP- 6L NC, DIMINISHED BREATH SOUNDS, PRODUCTIVE COUGH GI/- INDWELLING TEMP MAXIMUS LOPEZ MD AWARE, BM TODAY INT- REDDENED AND BLANCHABLE BUTTOCKS
--- NOTE | 2024-02-06 19:32 | NUR ---
NOREPINEPHRINE TITRATED TO 1MCG/MIN 130/119 (125)
--- NOTE | 2024-02-06 19:35 | NUR ---
NOREPINEPHRINE GTT OFF
--- NOTE | 2024-02-06 19:50 | NUR ---
handoff report received from day shift RN. pt laying in bed with family at bedside. no needs at this time.
--- NOTE | 2024-02-06 20:20 | NUR ---
PT ASSESSMENT COMPLETE. PT RESTING IN BED, AWAKENS TO VERBAL STIMULI. PT ALERT AND ORIENTED. PT ON 6L NC SATURATING WELL. PT BASELINE IS 3.5L O2 NC. PT FAMILY AT BEDSIDE. PT LOPEZ CATH PATENT, FLUSHED WITH 10ML OF NS. PT OFF OF LEVOPHED DRIP, BP REMAINS STABLE. PT IV SITES WNL. PT NOTED TO HAVE REDDENED AREA ON BUTTOCKS THAT IS BLANCHABLE. SAFETY CHECK COMPLETE. NO NEEDS AT THIS TIME. CALL LIGHT WITHIN REACH.
[2024-02-06] MEDS ORDERED: HEParin SOD (PORCINE) 5,000 UNIT/ML SDV SUB-Q SCH (21:00)
[2024-02-06 21:34] LABS: ANION GAP 14.2 (7-21); BUN/CREATININE RATIO 19.41 (6.0-28.6); CREATININE, SERUM 3.09 mg/dL (0.70-1.30); POTASSIUM 4.2 mmol/L (3.5-5.1)
--- NOTE | 2024-02-06 22:20 | NUR ---
PT REQUEST TO TAKE BIPAP OFF STATING THAT IT IS UNCOMFORTABLE. PT PLACED ON 6L NC. PT PROVIDED WITH WATER AND CHAPSTICK. PT VITAL SIGNS STABLE. PT DAUGHTER AT BEDSIDE. NO FURTHER NEEDS AT THIS TIME. CALL LIGHT WITHIN REACH.
--- NOTE | 2024-02-06 22:55 | NUR ---
PT SWITCHED TO 6L OXY MASK. PT TOLERATING WELL. VITAL SIGNS STABLE. NO FURTHER NEEDS AT THIS TIME. CALL LIGHT WITHIN REACH.
--- NOTE | 2024-02-06 23:00 | NUR ---
PT STATES HE NEEDS TO HAVE A BM. BED ROCHA PLACED UNDERNEATH PT. PT REPOSTIONED IN BED. ALLEVIN APPLIED TO REDDENED BUTTOCK AREA. BARRIER CREAM APPLIED TO GENITAL AREA. NO FURTHER NEEDS AT THIS TIME, CALL LIGHT WITHIN REACH.
--- NOTE | 2024-02-06 23:54 | NUR ---
RT IN ROOM FOR PT BREATHING TREATMENT. PT PLACED BACK ON BIPAP WITH NEW SETTINGS OF 10/5. PT TOLERATING WELL. VITAL SIGNS REMAIN STABLE. NO FURTHER NEEDS AT THIS TIME. CALL LIGHT WITHIN REACH.
[2024-02-07] VITALS (19 sets, daily range): BP systolic 105–135; BP diastolic 65–83
--- NOTE | 2024-02-07 00:06 | NUR ---
PT ASSESSMENT COMPLETE. NO NEW CHANGES AT THIS TIME. CALL LIGHT WITHIN REACH.
--- NOTE | 2024-02-07 02:27 | NUR ---
pt resting in bed with eyes closed, respirations even and regular. pt vital signs remain stable. no needs at this time. call light within reach.
--- NOTE | 2024-02-07 04:00 | NUR ---
PT UP TO BEDSIDE COMMODE. PT WAS A HEAVY TWO PERSON SBA. PT HAD BM AND ASSISTED BACK TO BED. PT REPOSITIONED. NO FURTHER NEEDS AT THIS TIME. CALL LIGHT WITHIN REACH.
--- NOTE | 2024-02-07 04:40 | NUR ---
PT ASSESSMENT COMPLETE. NO NEW CHANGES AT THIS TIME. PT REMAINS A/O. PT ON 6L OXYMASK TOLERATING WELL. PT VITAL SIGNS REMAIN STABLE. PT HAS NOT REQUIRED PRESSOR SUPPORT THROUGHOUT THE NIGHT. ALLEVIN IN PLACE ON REDDENED AREA ON BUTTOCKS. PT LOPEZ PATENT, URINE OUTPUT HAS BEEN ADEQUATE THROUGHOUT THE NIGHT. PT IV SITES WNL. PT DAUGHTER REMAINS AT BEDSIDE. NO NEEDS AT THIS TIME. CALL LIGHT WITHIN REACH.
[2024-02-07 06:03] LABS: HEMATOCRIT 41.6 % (35.0-50.0); HEMOGLOBIN 13.8 g/dL (12.0-18.0); MCH 32.6 (27-36); MCHC 33.2 g/dl (30-36); MCV 98.3 fl (81-99); PLATELET COUNT 122 K/uL (140-440); RBC 4.23 M/ul (4.3-5.7); RDW 17.7 (10.5-15.0)
[2024-02-07 06:16] LABS: BANDS, MANUAL DIFF 19; LYMPHOCYTES, MANUAL DIFF 3; MONOCYTES, MANUAL DIFF 3; NEUTROPHILS, MANUAL DIFF 75
[2024-02-07 06:18] LABS: ALBUMIN/GLOBULIN RATIO 0.57 (1.1-2.4); ANION GAP 17.7 (7-21); BILIRUBIN, TOTAL 0.6 ng/dL (0.2-1.0); BUN/CREATININE RATIO 20.52 (6.0-28.6); CALCIUM 7.8 mg/dL (8.5-10.1); CREATININE, SERUM 3.02 mg/dL (0.70-1.30); MAGNESIUM 1.4 mg/dL (1.8-2.4); PHOSPHORUS, INORGANIC 5.3 mg/dL (2.5-4.9); POTASSIUM 4.7 mmol/L (3.5-5.1); PROTEIN, TOTAL 5.5 g/dL (6.4-8.2)
--- NOTE | 2024-02-07 06:30 | NUR ---
PT INCONTINENT OF STOOL. BRIEF CHANGED. PT REPOSITONED IN BED. NO FURTHER NEEDS AT THIS TIME. CALL LIGHT WITHIN REACH.
--- NOTE | 2024-02-07 07:57 | NUR ---
SBAR REPORT RECEIVED FROM ADELITA DISLA. ALL EVENTS OF THE PREVIOUS SHIFT WERE DISCUSSED AND PLAN OF CARE REVIEWED. FAMILY CONTINUES TO BE AT BEDSIDE. WILL ROUND WITH MD ELIZABETH TO DISCUSS ANY CONCERNS.
--- NOTE | 2024-02-07 08:13 | NUR ---
UR CLINICAL REVIEW: 2MWayne JOINER, MEETS INPT. MEDICARE INPT 02/06/24 @ 1613 ORDER MATCHES REG NO AUTH REQUIRED PER MEDICARE RULES DC PLAN PENDING.
[2024-02-07] MEDS ORDERED: LACTATED RINGER'S 1,000 ML IV ONE (08:15)
[2024-02-07] MEDS ORDERED: POTASSIUM REPLACEMENT PROTOCOL ORAL/IV PO/IV SCH (09:00)
[2024-02-07] MEDS ORDERED: CEFTRIAXONE/SODIUM CHLORIDE 2 GM/100 ML PIGGYBACK IV SCH (09:00)
[2024-02-07] MEDS ORDERED: MAGNESIUM REPLACEMENT PROTOCOL ORAL/IV PO/IV SCH (09:00)
--- NOTE | 2024-02-07 09:08 | NUR ---
RESPIRATORY, SPEECH, PHYSICAL, AND OCCUPATIONAL THERAPY IN ROOM THIS AM TO SEE PATIENT. SPEECH THERAPY RECOMMENDED A MODIFIED THICKENED DIET AND SWALLOW STUDY THIS AFTERNOON. RESPIRATORY THERAPIST PLACED ANEUDY VAPOTHERM 30L 60FIO2. BOLUS OF LACTACTED RINGERS INITIATED FOR AN ELEVATED SERUM LACTIC ACID. SAFETY CHECK OF ROOM PERFORMED. REPOSITIONED FOR COMFORT. DAUGHTER REMAINS AT BEDSIDE. DENIES PAIN OR DISCOMFORT. NO OTHER NEEDS IDENTIFIED AT THIS TIME
[2024-02-07] MEDS ORDERED: MAGNESIUM SULFATE 2 GM/50 ML BAG IV SCH (09:15)
--- NOTE | 2024-02-07 09:26 | NUR ---
NEURO- ALERT AND ORIENTED X 3, DROWSY AND RESPONDS WELL TO MINIMAL VERBAL STIMULATION, PERRL, MOVES ALL EXTREMITIES WITH WEAKENED STRENGHT 4/4, DENIES PAIN CARDIAC- SINUS TACHYCARDIA 105-122 WITH ACTIVITY, AFEBRILE BILATERAL LOWER EXTTREMITY EDEMA RESP- VAPOTHERM 30L 60%FIO2, WEAK AND SLIGHT PRODUCTIVE COUGH, DIMINSHED BREATH SOUNDS, EXPIRATORY WHEEZES GI/- INDWELLING TEMP LOPEZ CATHETER, CLEAR/YELLOW URINE, LAST BM 02/06, REGULAR DIET WITH MODIFIED THICKENED LIQUIDS INT- SEE ASSESSMENT LDA- 20G L AC 20G R AC
--- NOTE | 2024-02-07 09:39 | NUR ---
PT NOT AVAILABLE FOR VISIT. PROVIDED PRAYER.
--- NOTE | 2024-02-07 10:49 | NUR ---
Spoke with pt and his daugter, Yvette. Yvette speaks for pt as he waves for her to do so. Pt lives with his in a 2 story home. They live on the main floor. They have 4 steps into the home. Per daughter, pt refuses to use any DME. She states he may use it if he thinks this will get him home sooner. has several canes and a walker. We did discuss [place] if they want to get a walker for a short period and return it in 3 months. Family started POLST form yesterday. Daughter has a sheet with pts wishes. I explained the POLST is more in depth and is sent to the [place] registry in case an ambulance is called. Pt wants to be a DNR/DNI, if this is registered the EMS will know his wishes. POLST form completed. had filled most of it out. Dr. Licona signed and copies made for daughter and medical records. Per daughter pt has slumps. He falls and then will not do well for a few days. He has a lift chair and he sits and spends nights in his lift chair. He uses 3.5 L of [address] and takes pt to his appts. They are able to transfer in and out of the car. does the household tasks and orders her groceries on line. Daughter picks up meds and groceries in [place] and deliveres them to parents. She wants to make sure pharmacy is listed as [facility] in [place]. Pharmacy called and notified. Pts PCP is Dr. Cuellar. At this time, family would prefer pt to return home on discharge. Pt does not want to be transferred to a higher level of care or receive dialysis. Family and pt would like minimal treatment when pt is admitted. Spoke with PT and at this point they are recommending a SNF. I will check with family tomorrow to see if this is something they would consider.
--- NOTE | 2024-02-07 10:57 | NUR ---
DAUGHTER REMAINS AT BEDSIDE, PATSY IS RESTING IN THE RECLINER WITH EYES CLOSED. TEMPERATURE OF ROOM ADJUSTED PER PATIENT REQUEST AND COMFORT. NS GTT AT 125CC P/HR AND ABX GTT. MAGNESIUM 1:2 INFUSING ROUNDED WITH MD ELIZABETH
--- NOTE | 2024-02-07 11:15 | NUR ---
PATIENT TRANSFERRED BACK TO BED FROM THE CHAIR WITH A 2 PERSON ASSIST. PATIENT TOLERATED WELL WITH STATING "ARMS ARE SORE". PATIENT WITH TWO FAMILY MEMBERS IN THE ROOM. PATIENT WITH ONE SMALL BOWEL MOVEMENT. ADAM CARE COMPLETE AND NEW BRIEF IS IN PLACE. PATIENT IS NOW SITTING UPRIGHT IN THE BED WITH HOB ELEVATED. SUCTION AT THE BEDSIDE. ORAL CARE COMPLETE. PATIENT TOLERATED WELL. PATIENT STATED NO FURTHER NEEDS AT THIS TIME. CALL LIGHT AND PERSONAL BELONGINGS ARE WITHIN REACH.
[2024-02-07] MEDS ORDERED: SODIUM CHLORIDE 0.9% 1,000 ML IV SCH (11:45)
[2024-02-07] MEDS ORDERED: PHARMACY RENAL DOSE ADJUSTMENT 1 DOSE MISC PO SCH (12:00)
--- NOTE | 2024-02-07 13:31 | NUR ---
TREY, INSTRUCTOR RN AND RN STUDENTS IN ROOM FOR AN IV REPLACEMENT. ANEUDY IS SURROUNDED BY LOVED ONES, ABLE TO EXPRESS NEEDS AND DESIRES. VAPOTHERM IN USE SEE ASSESSMENT
--- NOTE | 2024-02-07 15:43 | NUR ---
PATIENT TRANSFERED TO IMAGING FOR A [facility] SWALLOW STUDY WITH THIS RN AND RADIOLOGY STAFF ON 8L 02 NC. O2 SATS REMAINED ABOVE 90%. VSS WDL PER MONITOR, NO ADVERSE EVENTS. BACK IN BED ON VAPOTHERM 30L 60% FIO2 ENDORSING COMFORT. FAMILY AND RT AT BEDSIDE. METRONIDAZOLE ABX INFUSING.
--- NOTE | 2024-02-07 16:28 | NUR ---
REDDENED/ PURPLE BUTTOCKS COCCYX AREA. AFTER BESIDE COMMODE AREA WAS NOTED TO BE BLEEDING. FAMILY STATES THAT HE HAS HAD A "BED SORE" FOR A "FEW MONTHS" VS ANEUDY STATES HE HAS SUFERED WITH IT FOR A "FEW YEARS". FAMILY BROUGHT IN PRESCRIBED CREAM TO SHOW HEALTHCARE STAFF. WOUND CARE CONSULT ORDERED AND IMAGES IN CHART.
--- NOTE | 2024-02-07 17:45 | NUR ---
PATIENT IS SITTING UPRIGHT IN BED. 1700 SOLU-MEDROL DOSE ADMINISTERED PER THE EMAR. ORAL CARE COMPLETE. PATIENT WITH TWO FAMILY MEMBERS AT THE BEDSIDE. PATIENT WITH A FRESH CUP OF ICE WATER. DINNER TRAY IS ON THE BEDSIDE TABLE. LOPEZ CATHETER EMPTIED OF 1,000 ML YELLOW URINE. PATIENT STATED NO FURTHER NEEDS AT THIS TIME. CALL LIGHT AND PERSONAL BELONGINGS ARE WITHIN REACH.
--- NOTE | 2024-02-07 18:59 | NUR ---
ANEUDY HAD A PLEASANT AND PRODUCTIVE DAY TODAY. MULTIPLE CARES AND INTERVENTIONS WERE COMPLETED TODAY. INCLUDING BARRIUM SWALLOW, RESPIRATORY THERAPY, SPEECH THERAPY, PT/OT, WOUND CARE CONSULT PLACED. SEE ASSESSMENT AND NOTES FOR FURTHER DETAILS NEURO- ALERT AND ORIENTED X 3, MOVES ALL EXTREMITIES, ENDORSES PAIN THE BUTTOCKS, PERRL RESP- VAPOTHERM 30L 55 FIO2, WEAK COUGH, FLUTTER VALVE IN USE , O2 GOAL 88-92%, 6L SUFFICIENT WITH TRANSFER GI/- BOWEL MOVEMENTS X 2, MODIFIED THICKENED DIET, INCREASED DIET, INDWELLING LOPEZ CATHETER INT- SCATTERED BRUISES, REDDENED BACK
--- NOTE | 2024-02-07 19:45 | NUR ---
handoff report received from ADELITA Concepcion. pt laying awake in bed with family at bedside. no needs at this time. call light within reach.
--- NOTE | 2024-02-07 20:45 | NUR ---
PT ASSESSMENT COMPLETE. PT ON 30L VAPOTHERM AT 55% TOLERTING WELL. PT LUNGS ARE DIMINSIHED THROUGHOUT, AND STILL HAS LOOSE COUGH. PT IS ALERT AND ORIENTED, SEEMS TO BE MORE AWAKE AND CHATTY THIS EVENING. PT LOPEZ CATH PATENT WITH ADEQUATE URINE OUTPUT. PT IV SITES WNL. PT EDUCATED ON WOUND CARE CONSULT ORDER FOR REDDENED AREA ON BUTTOCKS. PT REPOSTIONED IN BED, AND FRESH ICE WATER PROVIDED. FAMILY REMAINS AT BEDSIDE. NO FURTHER NEEDS AT THIS TIME. CALL LIGHT WITHIN REACH.
--- NOTE | 2024-02-07 22:20 | NUR ---
PT STATES HE IS READY FOR BED. PT PLACED ON BIPAP WITH SETTING OF 10/5 AT 60%. PT REPOSITIONED IN BED. NO FURTHER NEEDS AT THIS TIME. CALL LIGHT WITHIN REACH. BED IN LOW AND LOCKED POSITION.
[2024-02-08] VITALS (14 sets, daily range): BP systolic 127–162; BP diastolic 71–93
--- NOTE | 2024-02-08 00:52 | NUR ---
PT ASSESSMENT COMPLETE. NO NEW CHANGES AT THIS TIME. PT BIPAP ADJUSTED AND PT REPOSITIONED IN BED. PT DAUGHTER AT BEDSIDE. NO NEEDS AT THIS TIME. CALL LIGHT WITHIN REACH.
--- NOTE | 2024-02-08 02:05 | NUR ---
pt resting in bed with eyes closed, respirations even and unlabored. pt remains on BIPAP- settings unchanged. vital signs remain stable. pt daughter remains at bedside. no needs at this time. call light within reach, bed in low and locked position.
--- NOTE | 2024-02-08 03:50 | NUR ---
pt used call light requesting a drink of water. pt remains on BIPAP- settings unchanged. vital signs remain stable. no further needs at this time. call light within reach, bed in low and locked position.
--- NOTE | 2024-02-08 05:15 | NUR ---
lab in room for AM lab draw. pt tolerated well. pt laying awake in bed. vital signs stable. no needs at this time. call light within reach.
[2024-02-08 05:43] LABS: HEMATOCRIT 37.8 % (35.0-50.0); HEMOGLOBIN 12.8 g/dL (12.0-18.0); MCH 33.3 (27-36); MCHC 33.8 g/dl (30-36); MCV 98.3 fl (81-99); PLATELET COUNT 117 K/uL (140-440); RBC 3.85 M/ul (4.3-5.7); RDW 17.1 (10.5-15.0)
[2024-02-08 06:02] LABS: BANDS, MANUAL DIFF 9; LYMPHOCYTES, MANUAL DIFF 1; MONOCYTES, MANUAL DIFF 4; NEUTROPHILS, MANUAL DIFF 86
[2024-02-08 06:07] LABS: ALBUMIN 1.9 g/dL (3.4-5.0); ALBUMIN/GLOBULIN RATIO 0.58 (1.1-2.4); ANION GAP 12.7 (7-21); BILIRUBIN, TOTAL 0.4 ng/dL (0.2-1.0); BUN/CREATININE RATIO 28.5 (6.0-28.6); CALCIUM 8.3 mg/dL (8.5-10.1); CREATININE, SERUM 2.07 mg/dL (0.70-1.30); MAGNESIUM 2.7 mg/dL (1.8-2.4); POTASSIUM 3.7 mmol/L (3.5-5.1); PROTEIN, TOTAL 5.2 g/dL (6.4-8.2)
--- NOTE | 2024-02-08 06:35 | NUR ---
PT RIGHT AC IV TAKEN OUT, TIP INTACT. PT TOLERATED WELL. PT REPOSITIONED IN BED, ALLEVIN PLACED ON BUTTOCKS WOUND. PT BRUSHED TEETH AND WASHED FACE WITH WASHCLOTH. LOPEZ CARE PROVIDED. PT DAUGHTER AT BEDSIDE. BIPAP TAKEN OFF PT AND PLACED ON VAPOTHERM- SETTINGS UNCHANGED. PT SITTING UP IN BED WATCHING TV. CALL LIGHT WITHIN REACH. BED IN LOW AND LOCKED POSITION.
--- NOTE | 2024-02-08 08:35 | NUR ---
PATIENT IN BED SITTING UP WITH DAUGHTER. VITALS AND I/O'S COMPLETED. LOPEZ DRAINED AND DOCUMENTED. PT HAS NO OTHER REQUESTS AT THIS TIME. CALL LIGHT WITHIN REACH.
--- NOTE | 2024-02-08 08:57 | NUR ---
ASSESSMENT COMPLETE - PT RESTING IN BED AWAKE AND ALERT CONVERSING WITH DAUGHTER. VAPOTHERM AT 30L/55% FI02, EXPIRATORY RHONCI NOTED THROUGHOUT BASES, PT REPORTS COUGH IS NON PRODUCTIVE AT THIS POINT. PT REPORTS INCREASED APPETITE THIS AM AND IMPROVED REST OVER NIGHT.
--- NOTE | 2024-02-08 10:30 | NUR ---
Spoke with Venancio and his daughter, Yvette. Discussed options of SNF, [facility] IP rehab, or possible Swingbed if he fits criteria. He states he is open to all if he needs rehab on dc. I will fax [facility] chart to [facility], and speak with Dr. Licona about possibility of a Swingbed. IM letter completed with pt. Pt requests daughter, Yvette, to sign.
--- NOTE | 2024-02-08 11:16 | NUR ---
PT BACK TO BED AFTER PT/OT SESSION. PT DISCOURAGED BY ABILITY TODAY. PT NOTED TO BE TACHYCARDIC IN THE 120'S EVEN AFTER RESTING BED. VAPOTHERM REMAINS AT 30L/55% FI02, SP02 92%.
[2024-02-08] MEDS ORDERED: metroNIDAZOLE 250 MG TAB PO SCH (12:00)
--- NOTE | 2024-02-08 12:00 | NUR ---
PATIENT LYING IN BED, VITALS AND I/O'S COMPLETED. LOPEZ DRAINED AND DOCUMENTED. PT ALSO REPOSITIONED UP IN BED. PT HAS NO OTHER REQUESTS AT THIS TIME. PT'S DAUGHTER IN ROOM. CALL LIGHT WITHIN REACH.
--- NOTE | 2024-02-08 13:30 | NUR ---
RECEIVED REPORT AT 1300 FROM SMITHA UREÑA. PT IN ROOM WITH FAMILY. WILL GO AND SEE HIM SHORTLY.
--- NOTE | 2024-02-08 14:00 | NUR ---
FAMILY AT BEDSIDE. PT STATED THAT HE FEELS OVERALL WORSE TODAY THAN YESTERDAY. PROBABILITY OF GETTING PT OFF THE VAPOTHERM THIS SHIFT ARE ZERO. PT HAS REMAINED TACHY SINCE PHYS.THERAPY WORKED WITH HIM THIS MORNING. HR >110 CONSTANTLY. PT ALSO REFUSES TO GET OUT OF BED NOW AND MAY WANT TO TRY AGAIN TOMORROW.
--- NOTE | 2024-02-08 15:00 | NUR ---
PT WAS TURNED. JUST A LITTLE OF CHANGE IN POSITION MADE O2 SATS DROP AND TACHYCARDIA TO UPPER 120'S. PT STILL IN ST. IT DID TAKE A COUPLE OF MINUTES TO PT TO RE-COUP FAR RESPIRATORY STATUS IS CONCERNED.
--- NOTE | 2024-02-08 15:44 | NUR ---
PATIENT ROTATED AND REPOSITIONED IN BED. VITALS COMPLETED. LOPEZ DRAINED AND DOCUMENTED. PT HAS NO OTHER REQUESTS AT THIS TIME. CALL LIGHT WITHIN REACH.
--- NOTE | 2024-02-08 16:00 | NUR ---
RIGHT LOBES ARE VERY DIMINISHED AND TIGHT. ALL LEFT LOBES HAVE RHOCHI PRESENT. PT NEEDS COACHING TO CLEAR HIS THROAT AND THEREFORE HIS SECRETIONS. PT HAS GENERALIZED EDEMA PRESENT IN BOTH ARMS. PT DID NOT EAT ANY LUNCH AT ALL. FAMILY IN ROOM. PT ALSO DOES NOT WANT TO GET OUT OF BED FOR THE REST OF THE DAY.
--- NOTE | 2024-02-08 16:30 | NUR ---
Requested by Virgil Proctor to return to room to speak with family. Pt has changed his mind and now would like to go home on Hospice. Returned to room and and spoke with several family members including pts . Pt stating he is wanting info as he does not want to cont. to live as he is now. Hospice explained and was discussing with pt if he wants to have comfort care now. I spoke with Hospice earlier and they are now closed for the day. They have availability to admit on next or Sun. Family would like pt to cont. treatment until Sunday as they have family members wanting to see pt. Pt tells his family he is not wanting to cont. how he is feeling now, but will wait until Sunday. We discussed plan for hospice early next week and I will send his chart in case someone is there over the weekend. Family would like Hospice. Family deny other needs at this time.
[2024-02-08] MEDS ORDERED: MORPHINE SULFATE 4 MG/ML VIAL IV PRN ×2 (17:00→19:30)
--- NOTE | 2024-02-08 17:00 | NUR ---
PT WANTS TO SEE HOW HE IS DOING UNTIL SUNDAY. TREATMENT TO CONTINUE FOR NOW. PT MAY NOT WANT TO USE BI-PAP TONIGHT. PT WISHES TO GO HOME ON HOSPICE CARE. PT IS AAOX4. FAMILY AT BEDSIDE.NO CHANGES IN V/S NOTED. WILL CONTINUE TO MONITOR.
--- NOTE | 2024-02-08 18:00 | NUR ---
PT STATED THAT HE IS COMFORTABLY POSITIONED AT THIS TIME. PT HAS NO NEEDS OR CONCERNS AT THIS TIME. WILL CONTINUE TO MONITOR.
[2024-02-08] MEDS ORDERED: LORazepam 2 MG/ML VIAL IV PRN ×2 (19:30)
[2024-02-08] MEDS ORDERED: ARTIFICIAL TEARS 15 ML BTL OU PRN (19:30)
[2024-02-08] MEDS ORDERED: fentaNYL citrate 100 MCG/2 ML VIAL IV PRN (19:30)
[2024-02-08] MEDS ORDERED: ATROPINE SULFATE 1% OPTH DROPS SL PRN (19:30)
--- NOTE | 2024-02-08 19:30 | NUR ---
REPORT RECEIVED FROM RAHEEM UREÑA. FAMILY IN ROOM WITH PT.
--- NOTE | 2024-02-08 19:50 | NUR ---
AT ABOUT 1855 PT WAS HAVING A BM AND FELLOW RN AND I WENT IN TO ROOM TO CLEAN PT UP. PT WAS TURNED TO SIDE FOR WIPING AND THEN O2 SATS DROPPED TO THE 70'S. VAPO THERM WAS AT 40L O2 AND 100% FIO2 AND PT STILL HAS NOT RECOVERED. RT WAS CALLED FOR A BREATHING TREATMENT WELL. 2MG OF MORPHINE WAS GIVEN TO HELP WITH BREATHING. AT ROUND 1905 PT STARTED COMPLAINING ABOUT CHEST PAIN. ANOTHER 2MG MORPHINE WAS GIVEN AFTER A NEW IV WAS STARTED. PT PULLED OUT IV RIGHT BEFORE. MD WAS AT BEDSIDE. PT NO IS COMFORT CARE. BUSINESS STRATEGY MANAGER TO START THOSE ORDERS.
[2024-02-08] MEDS ORDERED: ALBUTEROL/IPRATROPIUM 3 ML NEB INH SCH (20:00)
--- NOTE | 2024-02-08 20:08 | NUR ---
IN TO CHECK ON PT AND FAMILY, NO NEEDS AT THIS TIME, SPIRITUAL CARE OFFERED BUT FAMILY DOES NOT WANT THAT AT THIS TIME. FAMILY AROUND PT, TALKING. PT HAS EYES CLOSED, RESP EVEN AND UNLABORED APPEARS RESTFUL.
--- NOTE | 2024-02-08 22:51 | NUR ---
IN TO CHECK ON PT, FAMILY AT [facility], THEY STATE PT HAS NOT OPENED HIS EYES OR MADE ANY MOVEMENTS ON HIS OWN. RR 18, EVEN AND UNLABORED. PT REPOSITIONED AND DID NOT RESPOND AT ALL. HR 100'S.
--- NOTE | 2024-02-09 02:12 | NUR ---
PATIENT'S FAMILY CAME TO NURSE'S STATION TO REPORT PATIENT APPEARED TO BE IN DISTRESS. PATIENT'S STATED, "I TOOK THIS OFF" REFERENCING THE VAPTHERM CANNULA. PATIENT APPEARED TO BE GASPING BUT RECOVERED. MEDICATED WITH MORPHINE PER EMAR.
--- NOTE | 2024-02-09 02:33 | NUR ---
PT GIVEN PRN ATIVAN 0.5MG IV. FAMILY AT BEDSIDE.
--- NOTE | 2024-02-09 03:22 | NUR ---
RESP MORE LABORED AND GASPING SLIGHTLY, 2MG IV MORPHINE GIVEN.
--- NOTE | 2024-02-09 05:23 | NUR ---
FAMILY OUT TO SAY PT WAS MOANING AND MOVING HANDS AND BELIEVE HE IS UNCOMFORTABLE. 2MG IV MORPHINE GIVEN.
--- NOTE | 2024-02-09 07:57 | NUR ---
PATIENT MEDICATED WITH MORPHINE AND ATIVAN FOR INCREASED RESTLESSNESS.DROPS GIVEN FOR SECRETIONS. FAMILY AT BEDSIDE.
--- NOTE | 2024-02-09 08:04 | NUR ---
PATIENT ON PULSE OX SHOWING NO RESP OR PULSE. MD NOTIFIED. ALL FAMILY AT BEDSIDE. CODE PAUSE SCRIPT READ
--- NOTE | 2024-02-09 08:12 | NUR ---
TIME OF CALLED BY GLENN AT BEDSIDE. [id number]
--- NOTE | 2024-02-09 08:27 | NUR ---
[facility] arrives to department. coordination with bridges supervisor and family on after-life care
--- NOTE | 2024-02-09 08:41 | NUR ---
Patient passed at [id number]. Met with family at 8:25, had prayer with and several family members. Family has home planned, but is waiting for family to arrive. Family comforted by my coming, and has high praise for entire hospital staff.
--- NOTE | 2024-02-09 09:32 | NUR ---
FAMILY REMAINS IN ROOM AND AT BEDSIDE. MONITORS REMOVED. WARM BLANKETS PROVIDED.
--- NOTE | 2024-02-09 10:33 | NUR ---
[facility] contacted at 10:15. Patient belongings departed with family(spouse)
--- NOTE | 2024-02-09 10:39 | NUR ---
FAMILY LEAVING BEDSIDE. MORTUARY CALLED.
--- NOTE | 2024-02-09 10:52 | NUR ---
LOPEZ AND IV REMOVED. ASSISTED IN PATIENT TRANSPORT TO MORTUARY STRETCHER.
--- NOTE | 2024-02-09 11:00 | NUR ---
Communicated occasionally with family throughout process. Family expressed continual gratitude. home arrived at 10:42 departed at 10:53 Quick note...body was released at 8:15
[2024-02-11] MEDS ORDERED: SCOPOLAMINE 1 MG/3 DAYS PATCH 1 EACH TDSY TD SCH (09:00)
== END 2024-02-09 08:03 | DRG 871 ==
LOC: ED 08:14 → CCU 16:16
PROVIDERS: Emergency Medicine; ADMIT Family Medicine; ATTEND Family Medicine
PROC: 5A09457 Assistance with Respiratory Ventilation, 24-96 Consecutive Hours, Continuous Positive Airway Pressure (ICD-10-PCS; principal; 2024-02-06)
PROC: 3E033XZ Introduction of Vasopressor into Peripheral Vein, Percutaneous Approach (ICD-10-PCS; 2024-02-06)
PROC: 0T9B70Z Drainage of Bladder with Drainage Device, Via Natural or Artificial Opening (ICD-10-PCS; 2024-02-06)
PROC: 3E03329 Introduction of Other Anti-infective into Peripheral Vein, Percutaneous Approach (ICD-10-PCS; 2024-02-06)
DX: A41.9 Sepsis, unspecified organism (principal); J18.9 Pneumonia, unspecified organism; J96.01 Acute respiratory failure with hypoxia; R65.21 Severe sepsis with septic shock; J69.0 Pneumonitis due to inhalation of food and vomit; N17.9 Acute kidney failure, unspecified; J44.0 Chronic obstructive pulmonary disease with (acute) lower respiratory infection; Z51.5 Encounter for palliative care; Z66 Do not resuscitate; R13.12 Dysphagia, oropharyngeal phase; I12.9 Hypertensive chronic kidney disease with stage 1 through stage 4 chronic kidney disease, or unspecified chronic kidney disease; N18.9 Chronic kidney disease, unspecified; E78.00 Pure hypercholesterolemia, unspecified; K76.89 Other specified diseases of liver; N28.1 Cyst of kidney, acquired; Z87.891 Personal history of nicotine dependence; Z79.82 Long term (current) use of aspirin; Z79.899 Other long term (current) drug therapy; Z99.81 Dependence on supplemental oxygen; Z79.51 Long term (current) use of inhaled steroids; Z91.81 History of falling
CPT/HCPCS: 36415; 51702; 71045; 74176; 74230; 80048; 80053; 81001; 82803; 83605; 83735; 84100; 85025; 87040; 92610; 92611; 93005; 93010; 94640; 94660; 94667; 94668; 94799; 97110; 97163; 97167; 97530; 99285-25; A9270; J0131; J0696; J0878; J1644; J2060; J2270; J2919; J3475; J7030; J7121; U0002